=== PATIENT | female | born 2000 | race African-American/Black ===

== ENCOUNTER 2020-08-13 11:30 | Inpatient (IN) | payer SELFPAY ==
[2020-08-13] MEDS ORDERED: SODIUM CHLORIDE 1,000 ML IV STA (12:17)
[2020-08-13 12:42] LABS: BASO % 0.3 % (0-2.0); HEMATOCRIT 13.9 % (32.4-45.2); LYMPH % 6.7 % (8-40); MCH 23.4 pg (25.7-33.7); MCHC 31.3 g/dl (32.0-36.0); MEAN CELL VOLUME 74.5 fl (80-96); MEAN PLT VOLUME 10.3 fl (7.5-11.1); MONO % 6.3 % (3.8-10.2); NEUT % 86.7 % (42.8-82.8); PLATELET COUNT 226 K/MM3 (134-434); RBC 1.86 M/mm3 (3.60-5.2); RDW 20.2 % (11.6-15.6); WHITE BLOOD COUNT 13.2 K/mm3 (4.0-10.0)
[2020-08-13 12:51] LABS: HEMOGLOBIN 4.4 GM/dL (10.7-15.3)
[2020-08-13 13:54] LABS: ALBUMIN 3.1 g/dl (3.4-5.0); BLOOD UREA NITROGEN 6.4 mg/dL (7-18); CALCIUM 8.3 mg/dL (8.5-10.1)
[2020-08-13 13:58] LABS: CREATININE 0.7 mg/dL (0.55-1.3)
[2020-08-13 13:59] LABS: BILIRUBIN,TOTAL 0.3 mg/dL (0.2-1); TOT PROT 6.5 g/dl (6.4-8.2)
[2020-08-13 16:35] LABS: BASO % 0.2 % (0-2.0); EOS % 0.1 % (0-4.5); HEMATOCRIT 16.3 % (32.4-45.2); LYMPH % 6.1 % (8-40); MCH 24.8 pg (25.7-33.7); MCHC 31.7 g/dl (32.0-36.0); MEAN CELL VOLUME 78.3 fl (80-96); MEAN PLT VOLUME 11.3 fl (7.5-11.1); MONO % 5.7 % (3.8-10.2); NEUT % 87.9 % (42.8-82.8); PLATELET COUNT 174 K/MM3 (134-434); RBC 2.08 M/mm3 (3.60-5.2); RDW 21.4 % (11.6-15.6); WHITE BLOOD COUNT 16.5 K/mm3 (4.0-10.0)
[2020-08-13 16:39] LABS: HEMOGLOBIN 5.2 GM/dL (10.7-15.3)
[2020-08-13 18:11] LABS: ANISOCYTOSIS 3+; MACROCYTOSIS 0; OVALOCYTE 1+; PLATELET ESTIMATE NORMAL; TEAR DROP CELLS 1+
[2020-08-13] MEDS: SODIUM CHLORIDE 1,000 ML IV SCH (18:11)
[2020-08-13 23:21] VITALS: BMI 31.6
[2020-08-14 04:13] LABS: BASO % 0.2 % (0-2.0); EOS % 0.5 % (0-4.5); HEMATOCRIT 17.5 % (32.4-45.2); LYMPH % 12.8 % (8-40); MCH 26.2 pg (25.7-33.7); MCHC 32.7 g/dl (32.0-36.0); MEAN CELL VOLUME 80.1 fl (80-96); MEAN PLT VOLUME 9.7 fl (7.5-11.1); MONO % 12.1 % (3.8-10.2); NEUT % 74.4 % (42.8-82.8); PLATELET COUNT 191 K/MM3 (134-434); RBC 2.18 M/mm3 (3.60-5.2); RDW 18.8 % (11.6-15.6); WHITE BLOOD COUNT 13.3 K/mm3 (4.0-10.0)
[2020-08-14 04:17] LABS: HEMOGLOBIN 5.7 GM/dL (10.7-15.3)
[2020-08-14] MEDS ORDERED: FLU VACCINE (FLULAVAL) PF 60 MCG/0.5 ML SYRINGE 2020-2021 IM ONE (10:00)
[2020-08-14 10:54] LABS: BASO % 0.5 % (0-2.0); EOS % 0.8 % (0-4.5); HEMATOCRIT 19.7 % (32.4-45.2); LYMPH % 16.7 % (8-40); MCHC 33.7 g/dl (32.0-36.0); MEAN CELL VOLUME 80.2 fl (80-96); MEAN PLT VOLUME 10.6 fl (7.5-11.1); MONO % 12.8 % (3.8-10.2); NEUT % 69.2 % (42.8-82.8); PLATELET COUNT 176 K/MM3 (134-434); RBC 2.46 M/mm3 (3.60-5.2); RDW 17.2 % (11.6-15.6); WHITE BLOOD COUNT 13.3 K/mm3 (4.0-10.0)
[2020-08-14 11:00] LABS: INR 1.19 (0.83-1.09); PROTHROMBIN TIME (PATIENT) 14.3 SEC (9.7-13.0)
[2020-08-14 11:03] LABS: ACTIVATED PTT 21.9 SECONDS (25.2-36.5)
[2020-08-14 11:13] LABS: CALCIUM 7.9 mg/dL (8.5-10.1)
[2020-08-14 11:14] LABS: MAGNESIUM 2.3 mg/dL (1.8-2.4)
[2020-08-14 11:17] LABS: IRON SERUM 27 ug/dL (50-175); TOTAL IRON BINDING CAPACITY 348 ug/dL (250-450)
[2020-08-14 11:17] LABS: CREATININE 0.6 mg/dL (0.55-1.3)
[2020-08-14 11:33] LABS: HEMOGLOBIN 6.6 GM/dL (10.7-15.3)
[2020-08-14] MEDS ORDERED: IRON SUCROSE INJECTION 200 MG in SODIUM CHLORIDE 90 ML IVPB ONE (16:46)
[2020-08-14] MEDS ORDERED: DOCUSATE SODIUM 100 MG CAPSULE (FP) PO PRN (17:05)
[2020-08-14] MEDS: SODIUM CHLORIDE 1,000 ML IV SCH (17:26)
[2020-08-14 20:33] LABS: BASO % 0.8 % (0-2.0); EOS % 1.2 % (0-4.5); HEMATOCRIT 21.3 % (32.4-45.2); LYMPH % 24.5 % (8-40); MCH 26.4 pg (25.7-33.7); MCHC 32.6 g/dl (32.0-36.0); MEAN CELL VOLUME 81.1 fl (80-96); MONO % 9.5 % (3.8-10.2); PLATELET COUNT 178 K/MM3 (134-434); RBC 2.63 M/mm3 (3.60-5.2); RDW 16.3 % (11.6-15.6); WHITE BLOOD COUNT 11.2 K/mm3 (4.0-10.0)
[2020-08-15 07:50] LABS: EOS % 1.4 % (0-4.5); LYMPH % 19.7 % (8-40); MCH 26.8 pg (25.7-33.7); MEAN CELL VOLUME 81.1 fl (80-96); MEAN PLT VOLUME 10.4 fl (7.5-11.1); MONO % 10.8 % (3.8-10.2); NEUT % 67.1 % (42.8-82.8); PLATELET COUNT 189 K/MM3 (134-434); RBC 2.47 M/mm3 (3.60-5.2); RDW 16.5 % (11.6-15.6); WHITE BLOOD COUNT 11.7 K/mm3 (4.0-10.0)
[2020-08-15 07:56] LABS: HEMOGLOBIN 6.6 GM/dL (10.7-15.3)
[2020-08-15 08:24] LABS: BLOOD UREA NITROGEN 5.6 mg/dL (7-18); CALCIUM 7.8 mg/dL (8.5-10.1)
[2020-08-15 08:28] LABS: CREATININE 0.6 mg/dL (0.55-1.3); PHOSPHOROUS 3.1 mg/dL (2.5-4.9)
[2020-08-15] MEDS ORDERED: FERROUS SO4 325 MG TABLET (FP) PO SCH (10:00)
[2020-08-15 14:48] VITALS: BP 117/57; PULSE 93; TEMP 98.3
[2020-08-15] MEDS ORDERED: FLU VACCINE (FLULAVAL) PF 60 MCG/0.5 ML SYRINGE 2020-2021 IM ONE (15:00)
[2020-08-15 17:28] LABS: BASO % 0.7 % (0-2.0); EOS % 1.4 % (0-4.5); HEMATOCRIT 23.9 % (32.4-45.2); HEMOGLOBIN 7.8 GM/dL (10.7-15.3); LYMPH % 20.2 % (8-40); MCH 27.2 pg (25.7-33.7); MCHC 32.7 g/dl (32.0-36.0); MEAN CELL VOLUME 83.4 fl (80-96); MEAN PLT VOLUME 10.3 fl (7.5-11.1); MONO % 9.4 % (3.8-10.2); NEUT % 68.3 % (42.8-82.8); PLATELET COUNT 218 K/MM3 (134-434); RBC 2.87 M/mm3 (3.60-5.2); RDW 16.3 % (11.6-15.6); WHITE BLOOD COUNT 15.7 K/mm3 (4.0-10.0)
== END 2020-08-15 19:01 | disposition home or self-care (01) | DRG 532 ==
LOC: JER 11:30 → JERBED 13:21 → OBSVTOIN 14:43 → J7W 20:06
PROVIDERS: ADMIT Internal Medicine; ATTEND Internal Medicine
PROC: 30233N1 Transfusion of Nonautologous Red Blood Cells into Peripheral Vein, Percutaneous Approach (ICD-10-PCS; principal; 2020-08-13)
DX: N93.9 Abnormal uterine and vaginal bleeding, unspecified (principal); D62 Acute posthemorrhagic anemia; N92.0 Excessive and frequent menstruation with regular cycle; D50.9 Iron deficiency anemia, unspecified; D72.829 Elevated white blood cell count, unspecified
CPT/HCPCS: 36415; 36430; 71045-TC-FY; 76830-TC; 80048; 80053; 82728; 83540; 83550; 83735; 84100; 84443; 84703; 85025; 85610; 85730; 86850; 86900; 86901; 86922; 93005; 93010; 99285-25; C9803; G0378; J1756; P9058; Q2036; U0003; U0005